=== PATIENT | male | born 1985 | race Caucasian/White ===

== ENCOUNTER → 2020-05-19 | Outpatient (CLI) | payer OTHER ==
--- NOTE | 2020-05-19 13:48 | RADIOLOGY REPORT (SQ) ---
EXAM DESCRIPTION: LUMBAR SPINE COMPLETE IMAGES COMPLETED DATE/TIME: 05/19/2020 1:14 pm REASON FOR STUDY: LUMBAR BACK PAIN; LEFT MID ANTERIOR THIGH PAIN X 1 YEAR M54.5 LOW BACK PAIN M79.6 05 PAIN IN LEFT LEG COMPARISON: None. NUMBER OF VIEWS: Five views including obliques. TECHNIQUE: AP, lateral, oblique, and sacral radiographic images acquired of the lumbar spine. LIMITATIONS: None. FINDINGS: MINERALIZATION: Normal. SEGMENTATION: Normal. No transitional anatomy. ALIGNMENT: Normal. VERTEBRAE: Maintained height. No fracture or worrisome bone lesion. DISCS: Preserved height. No significant osteophytes or end plate irregularity. POSTERIOR ELEMENTS: Pedicles and facets are intact. No pars defect or posterior arch defects. HARDWARE: None in the spine. PARASPINAL SOFT TISSUES: Normal. PELVIS: Intact as visualized. No fractures or worrisome bone lesions. SI joints intact. OTHER: No other significant finding. IMPRESSION: NORMAL 5 VIEW LUMBAR SPINE. TECHNICAL DOCUMENTATION: JOB ID: [id number] [employer]- All Rights Reserved Reading location - IP/workstation name: [email or web address]
--- NOTE | 2020-05-19 13:58 | RADIOLOGY REPORT (SQ) ---
EXAM DESCRIPTION: FEMUR LEFT IMAGES COMPLETED DATE/TIME: 05/19/2020 1:14 pm REASON FOR STUDY: LUMBAR BACK PAIN; LEFT MID ANTERIOR THIGH PAIN X 1 YEAR M54.5 LOW BACK PAIN M79.6 05 PAIN IN LEFT LEG COMPARISON: None. NUMBER OF VIEWS: Two views. TECHNIQUE: Two radiographic images acquired of the left femur to include hip and knee in at least on e projection. LIMITATIONS: None. FINDINGS: MINERALIZATION: Normal. BONES: There is a 26 x 13 x 5 mm lytic lesion in the anterior cortex of the mid to distal femur. Thi s does not have sclerotic margins. There is no subperiosteal new bone. The inner aspect of the jimmie ex is intact. SOFT TISSUES: No obvious swelling or foreign body. OTHER: No other significant finding. IMPRESSION: Lytic lesion in the mid to distal femur. If the patient has had any outside images, it would be helpful to compare with this study. Recommend MRI without and with contrast. TECHNICAL DOCUMENTATION: JOB ID: [id number] 2010 [employer]- All Rights Reserved Reading location - IP/workstation name: [email or web address]
== END ==
LOC: OD 12:30
PROVIDERS: ATTEND Nurse Practitioner Family
DX: M54.5 Low back pain (principal); M79.605 Pain in left leg
CPT/HCPCS: 72110